=== PATIENT | male | born 1965 | race Caucasian/White ===

== ENCOUNTER 2022-12-04 08:13 | Day surgery (SDC) | payer OTHER ==
[2022-12-03 09:22] VITALS: BMI 24.4
[2022-12-04 08:53] LABS: Hematocrit 33.8 % (38.8-50.0); Hemoglobin 10.1 g/dL (13.5-17.5); Mean Corpuscular HGB CONC 29.3 g/dL (32.0-36.0); Mean Corpuscular Hemoglobin 19.2 pg (27.0-33.0); Mean Corpuscular Volume 65.5 fl (81.2-95.1); Mean Platelet Volume 9.1 fl (7.4-10.4); Platelet Count 440 10x3/uL (150-450); RBC Distribution Width 26.1 % (11.5-14.5); Red Blood Cell (RBC) Count 5.27 10x6/uL (4.32-5.72); White Blood Cell (WBC) Count 6.4 10x3/uL (3.5-10.5)
[2022-12-04] MEDS ORDERED: Lidocaine 2% 6 ML (Jelly) SYR ONE (09:10)
[2022-12-04] MEDS ORDERED: EPINEPHrine 1 MG/ML VIAL ONE (09:10)
[2022-12-04] MEDS ORDERED: Bupivacaine 0.25% HCL 30 ML VIAL ONE (09:10)
[2022-12-04] MEDS ORDERED: PROPOFOL 20 ML ONE (09:13)
[2022-12-04] MEDS ORDERED: fentaNYL 50 mcg/mL 1 mL Vial ONE ×2 (09:13→09:44)
[2022-12-04] MEDS ORDERED: Lidocaine 2% PF 5 ML VIAL ONE (09:13)
[2022-12-04] MEDS ORDERED: CEFAZOLIN 1 GM VIAL ONE (09:35)
[2022-12-04] MEDS ORDERED: Ondansetron PF 4 MG/2 ML Vial ONE (09:39)
[2022-12-04] MEDS ORDERED: Dexamethasone 4 mg/ml Vial ONE (09:39)
[2022-12-04] MEDS ORDERED: Ketorolac Tromethamine 30 MG/ML VIAL ONE (09:39)
== END 2022-12-04 11:30 | disposition home or self-care (01) ==
LOC: CSHSDC 08:13
PROVIDERS: ATTEND Surgery
PROC: 06BY0ZC Excision of Hemorrhoidal Plexus, Open Approach (ICD-10-PCS; principal; 2022-12-04)
DX: K64.2 Third degree hemorrhoids (principal); D64.9 Anemia, unspecified; Z79.82 Long term (current) use of aspirin; Z79.899 Other long term (current) drug therapy
CPT/HCPCS: 85027; 88304; J0171; J0690; J1100; J1885; J2001; J2405; J2704; J3010; S0020